=== PATIENT | male | born 1975 | race Caucasian/White ===

== ENCOUNTER 2017-04-15 04:24 | Observation (INO) | payer SELFPAY ==
[~2017-04-15] VITALS: Ht 182.9 cm; Wt 116.0 kg
[~2017-04-15 04:24] MED LIST: PERCOCET 5/31 TABLET PO
[2017-04-15 06:02] LABS: HEMATOCRIT 47.5 % (38.0-50.0); MCH 30.5 PG (29.0-34.0); MCHC 33.7 G/DL (30.0-36.0); MCV 90.5 FL (86-99); MEAN PLAT.VOLUME 9.9 uM^3 (9.0-12.4); PLATELET COUNT 185 K/uL (156-360); RBC DIS.WIDTH-CV 12.7 % (11.8-14.6); RBC DIS.WIDTH-SD 42.2 % (39-53); RED BLOOD COUNT 5.25 M/uL (4.00-5.50); WHITE BLOOD COUNT 6.9 K/uL (4.1-10.2)
[2017-04-15 06:16] LABS: CHLORIDE 105 mEq/L (99-109); POTASSIUM 3.9 mEq/L (3.7-5.4); SODIUM 138 mEq/L (136-147)
[2017-04-15 06:18] LABS: GLUCOSE 118 mg/dL (70-99)
[2017-04-15 06:19] LABS: ANION GAP 12 MEQ/L (2-14)
[2017-04-15 06:22] LABS: GFR ESTIMATE (CALCULATED) > 59 mL/min/
[2017-04-15 06:23] LABS: TROP-I INTERPRETATION NEGATIVE; TROPONIN-I < 0.01 ng/mL (0.0-0.30); UREA NITROGEN (BUN) 19 mg/dL (9-23)
[2017-04-15 10:07] LABS: D-DIMER ELISA < 150.00 ng/mLDDU (<230)
[2017-04-15 10:58] VITALS: BP 164/92
[2017-04-15 13:13] LABS: TROP-I INTERPRETATION NEGATIVE; TROPONIN-I < 0.01 ng/mL (0.0-0.30)
[2017-04-15] MEDS ORDERED: VENTOLIN HFA18 GM IH (16:14)
[2017-04-15] MEDS ORDERED: SINGULAIR10 MG PO (16:14)
[2017-04-15] MEDS ORDERED: PREDNISONE10 MG PO (16:14)
[2017-04-15 17:15] VITALS: BP 151/71
[2017-04-15 18:02] LABS: TROP-I INTERPRETATION NEGATIVE; TROPONIN-I < 0.01 ng/mL (0.0-0.30)
[2017-04-15 18:20] VITALS: BP 182/100
[2017-04-15 18:21] VITALS: BP 158/104
[2017-04-16 00:12] VITALS: BP 141/86
[2017-04-16 04:43] VITALS: BP 145/85
[2017-04-16 08:26] VITALS: BP 139/88
[2017-04-16 11:34] VITALS: BP 157/90
[2017-04-16] MEDS ORDERED: AMLODIPINE BESYL5 MG PO (12:07)
[2017-04-16] MEDS ORDERED: PREDNISONE10 MG PO (12:07)
[2017-04-16] MEDS ORDERED: SINGULAIR10 MG PO (12:08)
[2017-04-16] MEDS ORDERED: VENTOLIN HFA18 GM IH (12:08)
== END 2017-04-16 13:28 | disposition home or self-care (01) ==
LOC: EME 04:24 → EDOF 08:55 → 5WEST 08:55 → ENRESERV 08:58 → EDOF 08:59 → ENRESERV 09:06 → 5WEST 10:35
PROVIDERS: Emergency Medicine; Physician Assistant Medical
DX: J20.9 Acute bronchitis, unspecified (principal); J45.901 Unspecified asthma with (acute) exacerbation; R03.0 Elevated blood-pressure reading, without diagnosis of hypertension; L29.9 Pruritus, unspecified; Z82.3 Family history of stroke; Z57.31 Occupational exposure to environmental tobacco smoke; Z79.82 Long term (current) use of aspirin
CPT/HCPCS: 71010; 80048; 84484; 85027; 85379; 93005; 94640; 94640 76; 99202; 99281; 99285; G0378; J0360; J2920; J7512; Q0177

== ENCOUNTER 2017-05-15 03:23 | Emergency (ER) | payer SELFPAY ==
[~2017-05-15] VITALS: Ht 182.9 cm; Wt 116.9 kg
[~2017-05-15 03:23] MED LIST changes: +AMLODIPINE BESYL5 MG PO; +PREDNISONE10 MG PO; +SINGULAIR10 MG PO; +VENTOLIN HFA18 GM IH
[2017-05-15 04:23] LABS: EOSINOPHIL (%) 3.8 % (0-5); EOSINOPHIL COUNT 0.3 K/uL (0-0.3); HEMATOCRIT 46.3 % (38.0-50.0); IMMATURE GRANULOCYTE (%) 0.4 % (0.0-0.7); INSTRUMENT ABS NEUTROPHIL CT 5.5 K/uL; LYMPHOCYTE COUNT 1.4 K/uL (1.0-2.8); MCH 29.9 PG (29.0-34.0); MCHC 32.2 G/DL (30.0-36.0); MEAN PLAT.VOLUME 9.4 uM^3 (9.0-12.4); MONOCYTE (%) 10.5 % (3-12); MONOCYTE COUNT 0.9 K/uL (0-0.8); NEUTROPHIL (%) 67.9 % (45-76); NEUTROPHIL COUNT 5.5 K/uL (1.8-6.4); PLATELET COUNT 237 K/uL (156-360); RBC DIS.WIDTH-CV 12.8 % (11.8-14.6); RBC DIS.WIDTH-SD 43.8 % (39-53); RED BLOOD COUNT 4.98 M/uL (4.00-5.50); WHITE BLOOD COUNT 8.1 K/uL (4.1-10.2)
[2017-05-15 04:31] LABS: ADD MIUA? YES; BILIRUBIN NEGATIVE; BLOOD MODERATE; COLOR YELLOW ((YELLOW)); GLUCOSE (STRIP) NEGATIVE; KETONES NEGATIVE; LEUKOCYTES NEGATIVE; NITRITE NEGATIVE; PROTEIN (STRIP) NEGATIVE; SPECIFIC GRAVITY 1.024 (1.000-1.030)
[2017-05-15 04:32] LABS: CHLORIDE 106 mEq/L (99-109); POTASSIUM 3.9 mEq/L (3.7-5.4); SODIUM 142 mEq/L (136-147)
[2017-05-15 04:34] LABS: GLUCOSE 116 mg/dL (70-99)
[2017-05-15 04:35] LABS: ANION GAP 10 MEQ/L (2-14)
[2017-05-15 04:37] LABS: GFR ESTIMATE (CALCULATED) 54 mL/min/
[2017-05-15 04:38] LABS: UREA NITROGEN (BUN) 16 mg/dL (9-23)
[2017-05-15 04:54] LABS: BACTERIA RARE /HPF; EPITHELIAL CELLS NONE SEEN /HPF; HYALINE CASTS 0-5 /LPF; MUCUS TRACE /LPF; RED BLOOD CELLS 0-5 /HPF (0-5); UCUL ADDED? NO; WHITE BLOOD CELLS 0-5 /HPF (0-5)
[2017-05-15] MEDS ORDERED: PERCOCET 5/31 TABLET PO (06:24)
[2017-05-15 06:53] VITALS: BP 146/88
[2017-05-16] MEDS ORDERED: FLOMAX0.4 MG PO (05:29)
[2017-05-16] MEDS ORDERED: ZOFRAN4 MG PO (05:29)
== END 2017-05-15 06:59 | disposition home or self-care (01) ==
LOC: EME 03:23
PROVIDERS: Emergency Medicine
DX: N13.2 Hydronephrosis with renal and ureteral calculous obstruction (principal); I10 Essential (primary) hypertension
CPT/HCPCS: 74176; 80048; 81003; 85025; 99281; 99285; J1885; J2405; J3010; J7030

== ENCOUNTER 2017-05-16 04:23 | Emergency (ER) | payer SELFPAY ==
[~2017-05-16] VITALS: Ht 182.9 cm; Wt 116.3 kg
[2017-05-16 05:02] LABS: HEMATOCRIT 45.3 % (38.0-50.0); MCH 30.1 PG (29.0-34.0); MCHC 32.7 G/DL (30.0-36.0); MCV 92.1 FL (86-99); MEAN PLAT.VOLUME 9.3 uM^3 (9.0-12.4); PLATELET COUNT 226 K/uL (156-360); RBC DIS.WIDTH-CV 12.7 % (11.8-14.6); RBC DIS.WIDTH-SD 42.8 % (39-53); RED BLOOD COUNT 4.92 M/uL (4.00-5.50); WHITE BLOOD COUNT 10.9 K/uL (4.1-10.2)
[2017-05-16 05:17] LABS: CHLORIDE 103 mEq/L (99-109); POTASSIUM 4.2 mEq/L (3.7-5.4); SODIUM 137 mEq/L (136-147)
[2017-05-16 05:19] LABS: GLUCOSE 112 mg/dL (70-99)
[2017-05-16 05:21] LABS: ANION GAP 10 MEQ/L (2-14)
[2017-05-16 05:23] LABS: GFR ESTIMATE (CALCULATED) 47 mL/min/
[2017-05-16 05:24] LABS: UREA NITROGEN (BUN) 19 mg/dL (9-23)
[2017-05-16] MEDS ORDERED: ZOFRAN4 MG PO (05:29)
[2017-05-16] MEDS ORDERED: FLOMAX0.4 MG PO (05:29)
[2017-05-16 07:14] VITALS: BP 139/86
== END 2017-05-16 07:15 | disposition home or self-care (01) ==
LOC: EME 04:23
PROVIDERS: Emergency Medicine
DX: N20.0 Calculus of kidney (principal); R11.2 Nausea with vomiting, unspecified; N28.9 Disorder of kidney and ureter, unspecified; I10 Essential (primary) hypertension
CPT/HCPCS: 80048; 81003; 85027; 99281; 99284; J1885; J2405; J7030

== ENCOUNTER 2017-05-24 14:55 | Inpatient (IN) | payer SELFPAY ==
[~2017-05-24] VITALS: Ht 175.3 cm; Wt 117.1 kg
[~2017-05-24 14:55] MED LIST changes: +FLOMAX0.4 MG PO; +ZOFRAN4 MG PO
[2017-05-24 15:37] LABS: HEMATOCRIT 43.4 % (38.0-50.0); MCH 30.8 PG (29.0-34.0); MCHC 33.2 G/DL (30.0-36.0); MCV 92.9 FL (86-99); MEAN PLAT.VOLUME 9.4 uM^3 (9.0-12.4); PLATELET COUNT 257 K/uL (156-360); RBC DIS.WIDTH-CV 12.8 % (11.8-14.6); RBC DIS.WIDTH-SD 43.7 % (39-53); RED BLOOD COUNT 4.67 M/uL (4.00-5.50); WHITE BLOOD COUNT 11.2 K/uL (4.1-10.2)
[2017-05-24 15:48] LABS: CHLORIDE 108 mEq/L (99-109); SODIUM 140 mEq/L (136-147)
[2017-05-24 15:49] LABS: GLUCOSE 128 mg/dL (70-99)
[2017-05-24 15:51] LABS: ANION GAP 9 MEQ/L (2-14)
[2017-05-24 15:53] LABS: GFR ESTIMATE (CALCULATED) 44 mL/min/
[2017-05-24 15:54] LABS: UREA NITROGEN (BUN) 20 mg/dL (9-23)
[2017-05-24 16:06] LABS: ADD MIUA? YES; BILIRUBIN NEGATIVE; BLOOD NEGATIVE; COLOR YELLOW ((YELLOW)); GLUCOSE (STRIP) NEGATIVE; KETONES NEGATIVE; LEUKOCYTES TRACE; NITRITE NEGATIVE; PROTEIN (STRIP) NEGATIVE; SPECIFIC GRAVITY 1.018 (1.000-1.030); UROBILINOGEN 0.2 MG/DL (0.2-1.0)
[2017-05-24 16:09] LABS: BACTERIA RARE /HPF; EPITHELIAL CELLS NONE SEEN /HPF; MUCUS TRACE /LPF; RED BLOOD CELLS 0-5 /HPF (0-5); UCUL ADDED? NO; WHITE BLOOD CELLS 0-5 /HPF (0-5)
[2017-05-24] MEDS ORDERED: ALEVE220 MG PO (18:10)
[2017-05-24 23:02] VITALS: BP 172/101
[2017-05-24 23:49] VITALS: BP 145/91
[2017-05-25 04:06] VITALS: BP 158/89
[2017-05-25 06:16] LABS: EOSINOPHIL (%) 3.2 % (0-5); EOSINOPHIL COUNT 0.3 K/uL (0-0.3); IMMATURE GRANULOCYTE (%) 0.2 % (0.0-0.7); INSTRUMENT ABS NEUTROPHIL CT 6.1 K/uL; LYMPHOCYTE COUNT 1.5 K/uL (1.0-2.8); MCH 29.4 PG (29.0-34.0); MCHC 31.2 G/DL (30.0-36.0); MEAN PLAT.VOLUME 9.5 uM^3 (9.0-12.4); MONOCYTE (%) 9.1 % (3-12); MONOCYTE COUNT 0.8 K/uL (0-0.8); NEUTROPHIL (%) 69.4 % (45-76); NEUTROPHIL COUNT 6.1 K/uL (1.8-6.4); PLATELET COUNT 216 K/uL (156-360); RBC DIS.WIDTH-CV 12.8 % (11.8-14.6); RBC DIS.WIDTH-SD 44.4 % (39-53); RED BLOOD COUNT 4.36 M/uL (4.00-5.50); WHITE BLOOD COUNT 8.7 K/uL (4.1-10.2)
[2017-05-25 06:31] LABS: ANION GAP 6 MEQ/L (2-14); CHLORIDE 108 MEQ/L (99-109); GFR ESTIMATE (CALCULATED) 47 mL/min/; GLUCOSE 111 mg/dL (70-99); POTASSIUM 4.6 MEQ/L (3.7-5.4); SAMPLE HEMOLYSIS CHECK 1; SAMPLE ICTERIC CHECK 0; SAMPLE LIPEMIA CHECK 0; SODIUM 141 MEQ/L (136-147); UREA NITROGEN (BUN) 21 mg/dL (9-23)
[2017-05-25 07:56] VITALS: BP 168/97
[2017-05-25 11:37] VITALS: BP 163/94
[2017-05-25 11:43] LABS: POINT-OF-CARE METER ID UU14314084
[2017-05-25 15:55] VITALS: BP 144/88
[2017-05-25 20:44] VITALS: BP 148/92
[2017-05-26 00:32] VITALS: BP 145/86
[2017-05-26 04:05] VITALS: BP 142/83
[2017-05-26 07:52] VITALS: BP 146/81
[2017-05-26 09:20] LABS: ANION GAP 9 MEQ/L (2-14); CHLORIDE 107 MEQ/L (99-109); GFR ESTIMATE (CALCULATED) > 59 mL/min/; GLUCOSE 138 mg/dL (70-99); POTASSIUM 4.5 MEQ/L (3.7-5.4); SAMPLE HEMOLYSIS CHECK 1; SAMPLE ICTERIC CHECK 0; SAMPLE LIPEMIA CHECK 0; SODIUM 140 MEQ/L (136-147); UREA NITROGEN (BUN) 19 mg/dL (9-23)
[2017-05-26] MEDS ORDERED: AMLODIPINE BESYL5 MG PO (10:58)
[2017-05-26 11:14] VITALS: BP 144/81
[2017-05-26] MEDS ORDERED: CIPRO500 MG PO (11:18)
== END 2017-05-26 12:14 | disposition home or self-care (01) | DRG 661 ==
LOC: EME 14:55 → EDOF 20:24 → ENRESERV 20:42 → 2EAST 22:23
PROVIDERS: Hospitalist; Internal Medicine; Urology
DX: N13.6 Pyonephrosis (principal); N17.9 Acute kidney failure, unspecified; I10 Essential (primary) hypertension; J45.909 Unspecified asthma, uncomplicated; E66.9 Obesity, unspecified; Z68.38 Body mass index [BMI] 38.0-38.9, adult; Z82.3 Family history of stroke; Z82.49 Family history of ischemic heart disease and other diseases of the circulatory system
CPT/HCPCS: 74176; 80048; 81003; 82365 90; 82948; 83605; 85025; 85027; 87040; 99281; 99285; C2625; J0696; J1100; J1170; J1650; J1885; J2250; J2270; J2405; J3010; J7030